=== PATIENT | female | born 1975 | race Caucasian/White ===

== ENCOUNTER 2018-06-22 23:13 | Emergency (ER) | payer BC ==
[~2018-06-22] VITALS: Ht 167.6 cm; Wt 113.6 kg
[2018-06-22 23:34] VITALS: TEMP 97.4
[2018-06-22] MEDS ORDERED: NOVOLOG FLEX100 U/ML SQ (23:38)
[2018-06-22] MEDS ORDERED: TRESIBA FL200 UNIT/1 SQ (23:38)
[2018-06-23 02:18] LABS: BASO % 0.4 % (0.0-2.0); EOS # 0.1 (0.0-0.7); EOS % 0.7 % (0-4.0); GRAN # 6.5 (1.4-6.5); HEMATOCRIT 42.7 % (37.0-47.0); HEMOGLOBIN 14.1 g/dl (12.5-16.0); LYMPH # 3.3 (1.2-3.4); LYMPH % 31.5 % (20.0-51.0); MEAN CELL VOLUME 89 fl (80.0-100.0); MEAN CORPUSCULAR HEMOGLOBIN 30 pg (27.0-31.0); MEAN CORPUSCULAR HGB CONC 33 g/dl (33.0-37.0); MONO # 0.6 (0.1-0.6); PLATELET COUNT 330 K/mm3 (130-400); RED BLOOD COUNT 4.78 M/mm3 (4.10-5.30); REDCELL DISTRIBUTION WIDTH-CV 13.1 % (11.5-14.5)
[2018-06-23 02:31] LABS: ALANINE AMINOTRANSFERASE < 6 U/L (9-52); ALKALINE PHOSPHATASE 105 U/L (50-136); ANION GAP 11 mmol/L (7-16); AST,SGOT 15 U/L (15-37); BILIRUBIN,TOTAL 0.4 mg/dL (0.0-1.0); BLOOD UREA NITROGEN 13 mg/dL (7-17); CALCIUM 9.6 mg/dL (8.4-10.2); CARBON DIOXIDE 23 mmol/L (22-30); CHLORIDE 101 mmol/L (98-107); CREATININE, serum 0.57 (0.52-1.25); GLUCOSE 169 mg/dL (74-106); LIPASE 203 U/L (23-300); POTASSIUM 4.1 mmol/L (3.4-5.0); SODIUM 135 mmol/L (137-145); TOTAL PROTEIN 7.8 gm/dL (6.4-8.2)
[2018-06-23 02:51] LABS: COLLECTION METHOD CLEAN CATCH
[2018-06-23 03:15] LABS: PH 5 (5-8); SQUAMOUS EPITHELIAL 0-2 /hpf; URINE APPEARANCE Clear; URINE BACTERIA Rare /hpf; URINE BILIRUBIN Negative (NEGATIVE); URINE BLOOD Negative (NEGATIVE); URINE CALCIUM OXALATE CRYSTAL Present /hpf; URINE COLOR Yellow; URINE GLUCOSE 2+ (NEGATIVE); URINE KETONE Negative (NEGATIVE); URINE LEUKOCYTE ESTERASE Negative (NEGATIVE); URINE NITRATE Negative (NEGATIVE); URINE PROTEIN(semi-quant) 1+ (NEGATIVE); URINE RBC None Seen /hpf
[2018-06-23 05:52] LABS: INR 0.9 (0.8-3.0); PROTHROMBIN TIME 10.4 SECONDS (9.7-12.8)
[2018-06-23] MEDS ORDERED: NATURAL POTASS595 MG (05:55)
[2018-06-23] MEDS ORDERED: BENADRYL25 M2 PO (05:55)
[2018-06-23] MEDS ORDERED: VITAMIN D31000 I1 PO (05:58)
[2018-06-23 07:42] VITALS: BP 129/74; PULSE 90
== END 2018-06-23 08:02 | disposition short-term general hospital (02) ==
LOC: COL.ER 23:13
PROVIDERS: Emergency Medicine; Nurse Practitioner
DX: I81 Portal vein thrombosis (principal); E11.9 Type 2 diabetes mellitus without complications; Z79.4 Long term (current) use of insulin; Z88.0 Allergy status to penicillin; Z98.51 Tubal ligation status; F17.210 Nicotine dependence, cigarettes, uncomplicated
CPT/HCPCS: J1170; J2405; J7030; Q9967

== ENCOUNTER → 2018-07-10 | Outpatient (CLI) | payer BC ==
[~2018-07-10] MED LIST: BENADRYL25 M2 PO; NATURAL POTASS595 MG; NOVOLOG FLEX100 U/ML SQ; TRESIBA FL200 UNIT/1 SQ; VITAMIN D31000 I1 PO
== END ==
LOC: MC.RAD 09:45
DX: Z12.31 Encounter for screening mammogram for malignant neoplasm of breast (principal); N64.89 Other specified disorders of breast

== ENCOUNTER → 2018-07-13 | Outpatient (CLI) | payer BC | LOC: MC.RAD 07:46 | DX: N63.21 Unspecified lump in the left breast, upper outer quadrant (principal) ==

== ENCOUNTER → 2018-07-17 | Outpatient (CLI) | payer BC | LOC: MC.RAD 09:50 | DX: N63.20 Unspecified lump in the left breast, unspecified quadrant (principal); Z98.82 Breast implant status ==

== ENCOUNTER → 2018-08-17 | Outpatient (CLI) | payer BC | LOC: COL.RAD 12:51 | DX: Z01.812 Encounter for preprocedural laboratory examination (principal); K59.00 Constipation, unspecified; K76.9 Liver disease, unspecified; M54.9 Dorsalgia, unspecified; R05 Cough | CPT/HCPCS: A9585 ==

== ENCOUNTER 2018-08-24 06:39 | Day surgery (SDC) | payer BC ==
[~2018-08-24] VITALS: Ht 167.6 cm; Wt 117.0 kg
[~2018-08-24 06:39] MED LIST changes: -NATURAL POTASS595 MG; +NATURAL POTASS595 MG PO
[2018-08-24] MEDS ORDERED: VENTOLIN0.09 MG IH (06:48)
[2018-08-24] MEDS ORDERED: ZYRTEC 10MG10 MG PO (06:49)
[2018-08-24] MEDS ORDERED: 00186-0372-20 IH (06:49)
[2018-08-24] MEDS ORDERED: PEPCID 20MG TAB20 MG PO (06:51)
[2018-08-24] MEDS ORDERED: EPA FISH OIL1 SGL PO (06:51)
[2018-08-24] MEDS ORDERED: FLONASE NASAL S16 GM NS (06:52)
[2018-08-24] MEDS ORDERED: NEURONTIN300 MG/CAP PO (06:53)
[2018-08-24] MEDS ORDERED: SINGULAIR 110 MG/TAB PO (06:55)
[2018-08-24] MEDS ORDERED: ZETIA 10MG TAB10 MG PO (06:57)
[2018-08-24 07:20] VITALS: BP 121/49; PULSE 94; TEMP 98
[2018-08-24 08:15] VITALS: BP 124/78; PULSE 87; TEMP 97
--- NOTE | 2018-08-24 08:15 | NUR ---
Patient brought back to [facility]. Alert and oriented ambulated to chair without difficulty. Vital signs stable. States she would like orange juice. Denies and nausea or pain. at bedside. Call fortune within reach, will continue to monitor.
[2018-08-24 08:30] VITALS: BP 111/65; PULSE 85
--- NOTE | 2018-08-24 08:30 | NUR ---
Patient tolerated food and drink well. Vital signs stable. States she is feeling well. All safety maintained will continue to monitor.
[2018-08-24 08:45] VITALS: BP 118/68; PULSE 85
--- NOTE | 2018-08-24 09:00 | NUR ---
Discharge instructions reviewed with patient and . All questions answered. IV removed per MD orders. Patient to get dressed at this time.
--- NOTE | 2018-08-24 09:10 | NUR ---
Patient brought down to lobby via wheel chair. To be driven home by .
== END 2018-08-24 09:10 | disposition home or self-care (01) ==
LOC: SDCO 06:39
DX: K21.0 Gastro-esophageal reflux disease with esophagitis (principal); K44.9 Diaphragmatic hernia without obstruction or gangrene; K58.9 Irritable bowel syndrome, unspecified; J44.9 Chronic obstructive pulmonary disease, unspecified; F17.210 Nicotine dependence, cigarettes, uncomplicated; E66.9 Obesity, unspecified; Z68.41 Body mass index [BMI] 40.0-44.9, adult; E11.9 Type 2 diabetes mellitus without complications; Z79.4 Long term (current) use of insulin; G43.909 Migraine, unspecified, not intractable, without status migrainosus; R20.2 Paresthesia of skin; G89.29 Other chronic pain; Z79.899 Other long term (current) drug therapy; K58.2 Mixed irritable bowel syndrome; Z98.51 Tubal ligation status; E78.00 Pure hypercholesterolemia, unspecified; K76.0 Fatty (change of) liver, not elsewhere classified; Z87.19 Personal history of other diseases of the digestive system; F41.9 Anxiety disorder, unspecified; F32.9 Major depressive disorder, single episode, unspecified
CPT/HCPCS: C1726; J2704; J3010; J7030

== ENCOUNTER → 2018-11-23 | Outpatient (CLI) | payer BC ==
[~2018-11-23] MED LIST changes: +00186-0372-20 IH; +EPA FISH OIL1 SGL PO; +FLONASE NASAL S16 GM NS; +NEURONTIN300 MG/CAP PO; +PEPCID 20MG TAB20 MG PO; +SINGULAIR 110 MG/TAB PO; +VENTOLIN0.09 MG IH; +ZETIA 10MG TAB10 MG PO; +ZYRTEC 10MG10 MG PO
== END ==
LOC: COL.RAD 07:50
DX: R13.10 Dysphagia, unspecified (principal); R05 Cough; R10.9 Unspecified abdominal pain; R19.7 Diarrhea, unspecified; R12 Heartburn
CPT/HCPCS: A9541

== ENCOUNTER → 2018-11-28 | Outpatient (CLI) | payer BC | LOC: COL.RAD 07:35 | DX: K76.0 Fatty (change of) liver, not elsewhere classified (principal); R13.10 Dysphagia, unspecified; R05 Cough; R12 Heartburn; R19.7 Diarrhea, unspecified ==

== ENCOUNTER 2019-07-23 22:47 | Emergency (ER) | payer BC ==
[~2019-07-23] VITALS: Ht 167.6 cm; Wt 120.0 kg
[2019-07-23 23:20] VITALS: BP 133/78; TEMP 98.1
[2019-07-24 00:13] LABS: COLLECTION METHOD CLEAN CATCH
[2019-07-24 00:17] LABS: PH 6 (5-8); SQUAMOUS EPITHELIAL 0-2 /hpf; URINE APPEARANCE Clear; URINE BACTERIA Rare /hpf; URINE BILIRUBIN Negative (NEGATIVE); URINE BLOOD Negative (NEGATIVE); URINE COLOR Yellow; URINE GLUCOSE Negative (NEGATIVE); URINE KETONE Negative (NEGATIVE); URINE LEUKOCYTE ESTERASE Negative (NEGATIVE); URINE NITRATE Negative (NEGATIVE); URINE PROTEIN(semi-quant) Negative (NEGATIVE); URINE RBC None Seen /hpf; URINE UROBILINOGEN Negative (NEGATIVE)
[2019-07-24 00:39] LABS: BASO % 0.3 % (0.0-2.0); EOS % 0.3 % (0-4.0); GRAN # 8.9 (1.4-6.5); GRAN % 71.9 % (42.2-75.2); HEMATOCRIT 41.8 % (37.0-47.0); HEMOGLOBIN 13.9 g/dl (12.5-16.0); LYMPH # 2.6 (1.2-3.4); LYMPH % 21.1 % (20.0-51.0); MEAN CELL VOLUME 88 fl (80.0-100.0); MEAN CORPUSCULAR HEMOGLOBIN 29 pg (27.0-31.0); MEAN CORPUSCULAR HGB CONC 33 g/dl (33.0-37.0); MEAN PLATELET VOLUME 10.2 fl (7.4-10.4); MONO # 0.8 (0.1-0.6); MONO % 6.1 % (1.7-9.3); PLATELET COUNT 302 K/mm3 (130-400); RED BLOOD COUNT 4.77 M/mm3 (4.10-5.30); REDCELL DISTRIBUTION WIDTH-CV 13.5 % (11.5-14.5)
[2019-07-24] MEDS ORDERED: PROTONIX 40MG T40 MG PO (00:39)
[2019-07-24] MEDS ORDERED: CYMBALTA 30MG30 MG PO (00:39)
[2019-07-24] MEDS ORDERED: ATARAX 10MG10 MG/TAB PO (00:40)
[2019-07-24] MEDS ORDERED: CRESTOR5 MG PO (00:40)
[2019-07-24] MEDS ORDERED: VENTOLIN0.09 MG IH (00:41)
[2019-07-24 01:07] LABS: ALANINE AMINOTRANSFERASE 22 U/L (4-34); ALBUMIN 4.2 gm/dL (3.5-5.0); ALKALINE PHOSPHATASE 83 U/L (50-136); ANION GAP 8 mmol/L (7-16); AST,SGOT 28 U/L (15-37); BILIRUBIN,TOTAL 0.5 mg/dL (0.0-1.0); BLOOD UREA NITROGEN 12 mg/dL (7-17); CALCIUM 9.3 mg/dL (8.4-10.2); CARBON DIOXIDE 25 mmol/L (22-30); CHLORIDE 101 mmol/L (98-107); CREATININE, serum 0.64 (0.52-1.25); GLUCOSE 127 mg/dL (74-106); LIPASE 63 U/L (23-300); POTASSIUM 4.2 mmol/L (3.4-5.0); SODIUM 134 mmol/L (137-145); TOTAL PROTEIN 7.6 gm/dL (6.4-8.2)
[2019-07-24 01:20] LABS: TROPONIN-I < 0.012 ng/mL (0.000-0.035)
[2019-07-24 04:00] VITALS: PULSE 80
== END 2019-07-24 04:00 | disposition home or self-care (01) ==
LOC: COL.ER 22:47
PROVIDERS: Emergency Medicine
DX: G89.29 Other chronic pain (principal); R10.84 Generalized abdominal pain; E11.9 Type 2 diabetes mellitus without complications; J45.909 Unspecified asthma, uncomplicated; E78.5 Hyperlipidemia, unspecified; F17.210 Nicotine dependence, cigarettes, uncomplicated; Z79.4 Long term (current) use of insulin; Z79.899 Other long term (current) drug therapy; Z98.890 Other specified postprocedural states

== ENCOUNTER 2020-04-09 18:14 | Emergency (ER) | payer BC ==
[~2020-04-09] VITALS: Ht 167.6 cm; Wt 109.1 kg
[~2020-04-09 18:14] MED LIST changes: +ATARAX 10MG10 MG/TAB PO; +CRESTOR5 MG PO; +CYMBALTA 30MG30 MG PO; +PROTONIX 40MG T40 MG PO
[2020-04-09 18:40] VITALS: TEMP 97.2
[2020-04-09 19:28] VITALS: BP 152/83; PULSE 72
== END 2020-04-09 19:30 | disposition home or self-care (01) ==
LOC: COL.ER 18:14
DX: H11.31 Conjunctival hemorrhage, right eye (principal); H10.9 Unspecified conjunctivitis; E11.40 Type 2 diabetes mellitus with diabetic neuropathy, unspecified; J44.9 Chronic obstructive pulmonary disease, unspecified; F17.200 Nicotine dependence, unspecified, uncomplicated; Z88.0 Allergy status to penicillin; Z79.4 Long term (current) use of insulin; Z79.51 Long term (current) use of inhaled steroids